=== PATIENT | female | born 1935 | race Caucasian/White ===

== ENCOUNTER 2016-07-15 11:53 | Outpatient (CLI) | payer OTHER, MEDICAID | END 2016-07-15 19:06 | disposition home or self-care (01) | LOC: SMI 11:53 | PROVIDERS: ATTEND Family Medicine | DX: M79.89 Other specified soft tissue disorders (principal); M25.521 Pain in right elbow | CPT/HCPCS: 73221 ==

== ENCOUNTER 2018-12-06 13:58 | Outpatient (CLI) | payer OTHER, MEDICAID | END 2018-12-06 21:09 | disposition home or self-care (01) | LOC: SRD 13:58 | PROVIDERS: ATTEND Family Medicine | DX: M47.817 Spondylosis without myelopathy or radiculopathy, lumbosacral region (principal); M47.818 Spondylosis without myelopathy or radiculopathy, sacral and sacrococcygeal region; M41.85 Other forms of scoliosis, thoracolumbar region; I70.0 Atherosclerosis of aorta; R07.81 Pleurodynia | CPT/HCPCS: 71046-TC; 72110 ==

== ENCOUNTER 2022-01-16 20:03 | Emergency (ER) | payer OTHER, MEDICAID ==
[~2022-01-16] VITALS: Ht 157.5 cm; Wt 59.9 kg
[2022-01-16 20:07] VITALS: BP_SYST 117
--- NOTE | 2022-01-16 20:20 | NUR ---
Patient to [facility] for evaluation.
[2022-01-16] MEDS ORDERED: KETOROLAC TROMETHAMINE 60 MG/2 ML VIAL IM ONE (21:30)
[2022-01-16] MEDS ORDERED: CELE100C PO (22:05)
[2022-01-16 22:14] VITALS: BP_SYST 147
== END 2022-01-16 22:14 | disposition home or self-care (01) ==
LOC: SED 20:03
DX: S93.402A Sprain of unspecified ligament of left ankle, initial encounter (principal); Z79.899 Other long term (current) drug therapy; X58.XXXA Exposure to other specified factors, initial encounter; Y93.89 Activity, other specified; Y92.89 Other specified places as the place of occurrence of the external cause; Y99.8 Other external cause status
CPT/HCPCS: 99283; 84550; 36415; 96372; 88305; 88312; 88313; J1885